=== PATIENT | female | born 1955 | race Caucasian/White ===

== ENCOUNTER → 2019-03-19 | Outpatient (CLI) | payer MEDICARE, OTHER ==
--- NOTE | 2019-04-02 10:22 | MM ---
Reason for exam: screening (asymptomatic). Last mammogram was performed 8 years ago. History: Patient is postmenopausal. Took hormonal contraceptives for 6 months. Physical Findings: A clinical breast exam by your physician is recommended on an annual basis and results should be correlated with mammographic findings. MG 3D Screening Mammo W/Cad Bilateral CC and MLO view(s) were taken. Prior study comparison: March 30, 2011, mammogram, performed at [facility]. December 19, 2007, mammogram, performed at [facility]. The breast tissue is heterogeneously dense. This may lower the sensitivity of mammography. Benign appearing bilateral calcifications. No suspicious abnormality on the left breast. Right uppe router quadrant focal asymmetry at posterior depth. ASSESSMENT: Incomplete: need additional imaging evaluation, BI-RAD 0 RECOMMENDATION: Special view mammogram of the right breast. If lesion persists on supplemental views, image directed ultrasound is recommended. [facility] will attempt to contact patient to return for supplemental views and ultrasound if indicated.
== END | disposition home or self-care (01) ==
LOC: RADMAMWWP 10:14
PROVIDERS: ATTEND Family Medicine
DX: Z12.31 Encounter for screening mammogram for malignant neoplasm of breast (principal)
CPT/HCPCS: 77063; 77067

== ENCOUNTER → 2020-05-19 | Outpatient (CLI) | payer MEDICARE, OTHER ==
--- NOTE | 2020-05-21 11:56 | MM ---
Reason for exam: screening (asymptomatic). Last mammogram was performed 1 year and 1 month ago. History: Patient is postmenopausal. Took hormonal contraceptives for 6 months. Physical Findings: A clinical breast exam by your physician is recommended on an annual basis and results should be correlated with mammographic findings. MG 3D Screening Mammo W/Cad Bilateral CC and MLO view(s) were taken. Prior study comparison: April 12, 2019, right breast MG 3d work up w/cad RT. March 19, 2019, bilateral MG 3d screening mammo w/cad. March 30, 2011, mammogram, performed at [facility]. The breast tissue is extremely dense which could obscure a lesion on mammography. No significant changes when compared with prior studies. ASSESSMENT: Benign, BI-RAD 2 RECOMMENDATION: Routine screening mammogram of both breasts in 1 year.
== END ==
LOC: RADMAMWWP 12:33
PROVIDERS: ATTEND Family Medicine
DX: Z12.31 Encounter for screening mammogram for malignant neoplasm of breast (principal); Z78.0 Asymptomatic menopausal state
CPT/HCPCS: 77063; 77067

== ENCOUNTER → 2021-06-09 | Outpatient (CLI) | payer MEDICARE, OTHER ==
--- NOTE | 2021-06-11 11:02 | MM ---
Reason for exam: screening (asymptomatic). Last mammogram was performed 1 year and 1 month ago. History: Patient is postmenopausal. Took hormonal contraceptives for 6 months. Physical Findings: A clinical breast exam by your physician is recommended on an annual basis and results should be correlated with mammographic findings. MG 3D Screening Mammo W/Cad Bilateral CC and MLO view(s) were taken. Prior study comparison: May 19, 2020, bilateral MG 3d screening mammo w/cad. April 12, 2019, right breast MG 3d work up w/cad RT. The breast tissue is heterogeneously dense. This may lower the sensitivity of mammography. No significant changes when compared with prior studies. ASSESSMENT: Benign, BI-RAD 2 RECOMMENDATION: Routine screening mammogram of both breasts in 1 year.
== END | disposition home or self-care (01) ==
LOC: RADMAMWWP 14:14
PROVIDERS: ATTEND Family Medicine
DX: Z12.31 Encounter for screening mammogram for malignant neoplasm of breast (principal); Z13.820 Encounter for screening for osteoporosis
CPT/HCPCS: 77063; 77067

== ENCOUNTER → 2021-08-10 | Outpatient (CLI) | payer MEDICARE, OTHER ==
--- NOTE | 2021-08-10 19:29 | BD ---
EXAMINATION TYPE: Axial Bone Density DATE OF EXAM: 08/10/2021 COMPARISON: NONE CLINICAL HISTORY: 65 years year old Female. ICD-10 CODE: Z78.0 ASYMPTOMATIC MENOPAUSAL STATE Height: 64 Weight: 129 FRAX RISK QUESTIONS: Alcohol (3 or more units per day): NO Family History (Parent hip fracture): YES Glucocorticoids (More than 3mos): NO History of Fracture in Adulthood: NO Secondary Osteoporosis: 1. Type 1 Diabetes: NO 2. Hyperthyroidism: NO 3. Menopause before 45: NO 4. Malnutrition: NO 5. Chronic liver disease: NO Rheumatoid Arthritis: NO Current Tobacco Use: NO RISK FACTORS HISTORY OF: Hip Fracture (Right/Left): NO Spine Fracture: NO History of Wrist Fracture: NO Surgery to Spine/Hip(right/left)/Wrist (right/left): NO Family History of Osteoporosis: YES MOTHER AND MATERNAL GRANDMOTHER Active: YES Diet low in dairy products/other sources of calcium: NO Postmenopausal woman: YES Take estrogen and/or progesterone medications: NO Lost more than 2 inches in height since high school: NO Frequent falls: NO Poor Health: NO Hyperparathyroidism: NO Adrenal Insufficiency: NO MEDICATIONS: Prednisone or other steroids: NO Thyroid Medications: SYNTHROID How Long: PAST YEAR Osteoporosis Medications: NO Additional Medications: VIT D, Additional History: EXAM MEASUREMENTS: Bone mineral densitometry was performed using the [employer] System. Bone mineral density as measured about the Lumbar spine is: ----- L1-L4(G/cm2): 1.160 T Score Values are as follows: ----- L1: -1.1 ----- L2: -0.4 ----- L3: -0.2 ----- L4: 0.5 ----- L1-L4: -0.2 BASELINE STUDY Bone mineral density about the R hip (g/cm2): 0.780 Bone mineral density about the L hip (g/cm2): 0.815 T Score values are as follows: -----R Neck: -1.9 -----L Neck: -1.6 -----R Total: -1.0 -----L Total: -0.5 BASELINE STUDY FRAX%s: The graph provided illustrates a 17.1% chance for a major osteoporotic fx and a 2.5% chance f or the hips probability for fx in 10 years time. IMPRESSION: Osteopenia (T Score between -2.5 and -1). There is slightly increased risk of fracture and the patient may be considered for treatment. Re-Screen 2-5 years. NOTE: T-SCORE=SD OF THE YOUNG ADULT MEAN.
== END | disposition home or self-care (01) ==
LOC: RADBDWWP 09:52
PROVIDERS: ATTEND Family Medicine
DX: Z13.820 Encounter for screening for osteoporosis (principal); Z78.0 Asymptomatic menopausal state
CPT/HCPCS: 77080

== ENCOUNTER → 2021-11-07 | Outpatient (CLI) | payer MEDICARE, OTHER ==
[2021-11-07 11:58] LABS: Basophils # (A) 0.02 X 10*3/uL (0.00-0.10); Basophils % (A) 0.3 %; Eosinophils # (A) 0.16 X 10*3/uL (0.04-0.35); Eosinophils % (A) 2.7 %; HCT 38.7 % (37.2-46.3); HGB 12.9 g/dL (12.0-15.0); Immature Grans, Automated 0.2 %; Lymphocytes # (A) 2.24 X 10*3/uL (0.90-5.00); Lymphocytes % (A) 37.8 %; MCH 29.9 pg (27.0-32.0); MCHC 33.3 g/dL (32.0-37.0); MCV 89.8 fL (80.0-97.0); Mean Platelet Volume 13.3 fL (9.5-12.2); Monocytes % (A) 6.8 %; NRBC Per 100 WBC 0 /100 WBCS (0.0-0.0); Neutrophils # (A) 3.09 X 10*3/uL (1.80-7.70); Neutrophils % (A) 52.2 %; Platelet Count 164 X 10*3/uL (140-440); RBC 4.31 X 10*6/uL (4.10-5.20); WBC 5.92 X 10*3/uL (4.50-10.00)
[2021-11-07 12:11] LABS: % Iron Saturation 25.21 (12.00-45.00); ALT 23 U/L (8-44); AST 24 U/L (13-35); African American GFR (CKD) 91.6 (60.0-200.0); Albumin 4.5 g/dL (3.8-4.9); Albumin/Globulin Ratio 1.96 (1.60-3.17); Alkaline Phosphatase 82 U/L (41-126); BUN/Creat Ratio 22.65 Ratio (12.00-20.00); Blood Urea Nitrogen 17.6 mg/dL (9.0-27.0); Calcium 9.3 mg/dL (8.7-10.3); Carbon Dioxide 27.4 mmol/L (20.0-27.5); Chloride 104 mmol/L (96-109); Chol/HDL Ratio 2.81 Ratio; Globulin 2.3 g/dL (1.6-3.3); Glucose 93 mg/dL (70-110); Iron 71 ug/dL (50-170); LDL Cholesterol,Calculated 94.4 mg/dL (0.0-131.0); Potassium 3.8 mmol/L (3.5-5.5); Sodium 142 mmol/L (135-145); Total Iron Binding Capacity 283 ug/dL (228-460); Total Protein 6.7 g/dL (6.2-8.2); VLDL Calculation 14.46 mg/dL (5.00-40.00)
== END | disposition home or self-care (01) ==
LOC: LABWHC1 08:32
PROVIDERS: ATTEND Family Medicine
DX: Z13.220 Encounter for screening for lipoid disorders (principal); Z13.1 Encounter for screening for diabetes mellitus; E03.9 Hypothyroidism, unspecified; R53.83 Other fatigue
CPT/HCPCS: 36415; 80053; 80061; 82306; 82607; 82728; 82746; 83036; 83540; 83550; 84439; 84443; 84481; 85025

== ENCOUNTER → 2023-01-20 | Outpatient (CLI) | payer MEDICARE, OTHER ==
--- NOTE | 2023-01-20 14:16 | US ---
EXAMINATION TYPE: US thyroid st tissue head/neck DATE OF EXAM: 01/20/2023 COMPARISON: NONE CLINICAL INDICATION: Female, 67 years old with history of E04.1 NONTOXIC SINGLE THYROID NODULE; GLAND SIZE: Right Lobe: 4.7 x 1.5 x 2.0 cm Overall Parenchyma: homogenous Left Lobe: 4.4 x 1.3 x 1.4 cm Overall Parenchyma: homogenous Isthmus Thickness: 0.27 cm NODULES RIGHT: # of nodules measured on right: 1 - largest listed below, multiple subcentimeter nodules see n 1. 1.3 X 1.1 x 1.1 cm, mid mid, solid or almost completely solid, isoechoic nodule, which is circul ar, with lobulated or irregular margins, with echogenic foci. TR 4 Prior size: at [facility], unavailable for comparison LEFT: # of nodules measured on left: 1 1. 1.2 X 0.8 x 1.0 cm, lower mid, mixed cystic and solid, hypoechoic nodule, which is wider than ta ll, with lobulated or irregular margins, with echogenic foci. Prior size: ISTHMUS: # of nodules measured in the isthmus: 0 subcentimeter cystic area noted Bilateral neck scanned, no evidence of lymphadenopathy. IMPRESSION: 1. Moderately suspicious nodule right thyroid lobe. Short-term follow-up 1 year is recommended. 2017 ACR TI-RADS LEVEL: TR-RADS 4 - Moderately Suspicious: Follow if > 1 cm, FNA if > 1.5 cm *Highest TI-RADS level nodule reported
== END | disposition home or self-care (01) ==
LOC: RADUSWWP 13:26
PROVIDERS: ATTEND Otolaryngology
DX: E04.1 Nontoxic single thyroid nodule (principal)
CPT/HCPCS: 76536

== ENCOUNTER → 2023-05-23 | Outpatient (CLI) | payer MEDICARE, OTHER ==
--- NOTE | 2023-05-24 10:02 | MM ---
Reason for Exam: Screening (asymptomatic). Last mammogram was performed 1 year(s) and 11 month(s) ago. Patient History: Menarche at age 11. First Full-Term at age 27. Postmenopausal. Hormonal Contraceptives for 6 months. Risk Values: Agnes 5 year model risk: 1.9%. NCI Lifetime model risk: 5.9%. Prior Study Comparison: 04/12/2019 Right Diagnostic Mammogram, [facility]. 05/19/2020 Bilateral Screening Mammogram, [facility]. 06/09/2021 Bilateral Screening Mammogram, [facility]. Tissue Density: The breasts are heterogeneously dense, which may obscure small masses. Findings: Analyzed By CAD. There is no suspicious group of microcalcifications or new suspicious mass in either breast. On benign-appearing calcifications. There is a 4 mm nodule circumscribed margins in the upper margin of the right breast. Overall Assessment: Incomplete: need additional imaging evaluation, BI-RAD 0 Management: Diagnostic Mammogram of the right breast. . Patient should continue monthly self-breast exams. A clinical breast exam by your physician is recommended on an annual basis. This exam should not preclude additional follow-up of suspicious palpable abnormalities. Note on Agnes scores and lifetime risk: 1. A Agnes score greater than 3% is considered moderate risk. If this is the case, consider specialist referral to assess eligibility for a risk reducing agent. 2. If overall lifetime risk for the development of breast cancer is 20% or higher, the patient may qualify for future screening with alternating mammogram and breast MRI. Electronically signed and approved by: Darío Delatorre M.D. Radiologis
== END | disposition home or self-care (01) ==
LOC: RADMAMWWP 13:06
PROVIDERS: ATTEND Family Medicine
DX: Z12.31 Encounter for screening mammogram for malignant neoplasm of breast (principal); Z78.0 Asymptomatic menopausal state
CPT/HCPCS: 77063; 77067

== ENCOUNTER → 2023-05-25 | Outpatient (CLI) | payer MEDICARE, OTHER ==
--- NOTE | 2023-05-26 09:30 | USB ---
Reason for Exam: Additional evaluation requested from abnormal screening. Patient History: Menarche at age 11. First Full-Term at age 27. Postmenopausal. Hormonal Contraceptives for 6 months. Risk Values: Agnes 5 year model risk: 1.9%. NCI Lifetime model risk: 5.9%. Technique: Method: Targeted. Prior Study Comparison: 05/19/2020 Bilateral Screening Mammogram, [facility]. 06/09/2021 Bilateral Screening Mammogram, [facility]. 05/23/2023 Bilateral MG 3D screening mammo w/cad, [facility]. Findings: The upper outer quadrant of the right breast, the axilla of the right breast and the retroareolar of the right breast were scanned. Technique utilized:US breast workup limited RT Image; Ultrasound imaging of: All 4 quadrants, the retroareolar region and axilla. There is a 4 mm lesion at 9:00 8 cm from the nipple is too small to characterize. May represent complex cyst given posterior acoustic enhancement. Overall Assessment: Probably benign, BI-RAD 3 Management: Diagnostic Breast Ultrasound of the right breast in 6 months. A clinical breast exam by your physician is recommended on an annual basis and results should be correlated with mammographic findings. This exam should not preclude additional follow-up of suspicious palpable abnormalities. Results were given to the patient verbally at the time of exam. Electronically signed and approved by: Jose Rodgers DO
--- NOTE | 2023-05-26 09:30 | MM ---
Reason for Exam: Additional evaluation requested from abnormal screening. Last screening mammogram was performed less than 1 month ago. Patient History: Menarche at age 11. First Full-Term at age 27. Postmenopausal. Hormonal Contraceptives for 6 months. Risk Values: Agnes 5 year model risk: 1.9%. NCI Lifetime model risk: 5.9%. Prior Study Comparison: 12/19/2007 Screening Mammogram, [facility]. 03/30/2011 Screening Mammogram, [facility]. 03/19/2019 Bilateral Screening Mammogram, [facility]. 04/12/2019 Right Diagnostic Mammogram, [facility]. 04/12/2019 Right Diagnostic Ultrasound, [facility]. 05/19/2020 Bilateral Screening Mammogram, [facility]. 06/09/2021 Bilateral Screening Mammogram, [facility]. 05/23/2023 Bilateral MG 3D screening mammo w/cad, [facility]. Tissue Density: Right: There are scattered areas of fibroglandular density. Findings: Analyzed By CAD. Focal asymmetry persists upper aspect measuring 4 mm 7.7 cm from the nipple. Overall Assessment: Incomplete: need additional imaging evaluation, BI-RAD 0 Management: Diagnostic Breast Ultrasound of the right breast. Results were given to the patient verbally at the time of exam. Patient should continue monthly self-breast exams. A clinical breast exam by your physician is recommended on an annual basis. This exam should not preclude additional follow-up of suspicious palpable abnormalities. Note on Agnes scores and lifetime risk: 1. A Agnes score greater than 3% is considered moderate risk. If this is the case, consider specialist referral to assess eligibility for a risk reducing agent. 2. If overall lifetime risk for the development of breast cancer is 20% or higher, the patient may qualify for future screening with alternating mammogram and breast MRI. Electronically signed and approved by: Jose Rodgers DO
== END | disposition home or self-care (01) ==
LOC: RADMAMWWP 14:04
PROVIDERS: ATTEND Family Medicine
DX: R92.321 Mammographic fibroglandular density, right breast (principal); Z78.0 Asymptomatic menopausal state
CPT/HCPCS: 77065; 76642; G0279; 77061

== ENCOUNTER → 2023-09-02 | Outpatient (CLI) | payer MEDICARE, OTHER ==
[2023-09-02 17:27] LABS: Basophils # (A) 0.03 X 10*3/uL (0.00-0.10); Basophils % (A) 0.3 %; Eosinophils # (A) 0.23 X 10*3/uL (0.04-0.35); Eosinophils % (A) 2.6 %; HCT 42.4 % (37.2-46.3); HGB 13.4 g/dL (12.0-15.0); Lymphocytes # (A) 3.13 X 10*3/uL (0.90-5.00); Lymphocytes % (A) 35.2 %; MCH 28.6 pg (27.0-32.0); MCHC 31.6 g/dL (32.0-37.0); MCV 90.6 FL (80.0-97.0); Mean Platelet Volume 14.9 FL (9.5-12.2); Monocytes # (A) 0.68 X 10*3/uL (0.20-1.00); Monocytes % (A) 7.6 %; NRBC Per 100 WBC 0 X 10*3/uL (0.00-0.01); Neutrophils # (A) 4.82 X 10*3/uL (1.80-7.70); Neutrophils % (A) 54.2 %; Platelet Count 166 X 10*3/uL (140-440); RBC 4.68 X 10*6/uL (4.10-5.20); RDW 13.8 % (11.5-14.5)
[2023-09-02 18:30] LABS: Erythrocyte Sedimentation Rate 12 mm/Hr (0-30)
[2023-09-02 21:22] LABS: ALT 33 U/L (8-44); AST 27 U/L (13-35); Albumin 4.5 g/dL (3.8-4.9); Albumin/Globulin Ratio 1.73 Ratio (1.60-3.17); Alkaline Phosphatase 89 U/L (41-126); BUN/Creat Ratio 26.25 Ratio (12.00-20.00); C Reactive Protein <0.30 mg/dL (0.00-0.80); Calcium 9.8 mg/dL (8.7-10.3); Chloride 104 mmol/L (96-109); Chol/HDL Ratio 2.82 Ratio; Creatine Kinase 38 U/L (26-186); Globulin 2.6 g/dL (1.6-3.3); Glucose 91 mg/dL (70-110); LDL Cholesterol,Calculated 104.2 mg/dL (0.0-131.0); Sodium 143 mmol/L (135-145); T4, Free (Free Thyroxine) 1.41 ng/dL (0.80-1.80); Total Bilirubin <0.2 mg/dL (0.3-1.2); Total Protein 7.1 g/dL (6.2-8.2); VLDL Calculation 15.32 mg/dL (5.00-40.00)
== END | disposition home or self-care (01) ==
LOC: LABWHC1 07:53
PROVIDERS: ATTEND Family Medicine
DX: Z00.01 Encounter for general adult medical examination with abnormal findings (principal); M25.50 Pain in unspecified joint
CPT/HCPCS: 36415; 80053; 80061; 82550; 83036; 84439; 84443; 85025; 85652; 86140

== ENCOUNTER 2024-03-29 08:30 | Day surgery (SDC) | payer MEDICARE, OTHER ==
[~2024-03-29 08:30] MED LIST: LIDOCAINE 1% (10MG/ML) FOR IV START INTRADERMA PRN
[2024-03-29] MEDS: IV FLUID CONTINUATION 1,000 ML IV ONE (09:30)
[2024-03-29 09:32] VITALS: TEMP 98.3
[2024-03-29] MEDS: LACTATED RINGERS 1,000 ML IV SCH (09:33)
[2024-03-29] MEDS ORDERED: PROPOFOL 10 MG/ML 20 ML VIAL IV ONE (10:25)
--- NOTE | 2024-03-29 10:49 | P.PCN ---
Date of Procedure: 03/29/24 Procedure(s) Performed: BRIEF HISTORY: Patient is a 68-year-old pleasant white female scheduled for an elective colonoscopy as a part of screening for colon cancer /positive Cologuard. PROCEDURE PERFORMED: Colonoscopy. PREOPERATIVE DIAGNOSIS: Screening for colon cancer/positive Cologuard. IV sedation per Anesthesia. PROCEDURE: After informed consent was obtained, the patient, was brought into the endoscopy unit. IV sedation was administered by Anesthesia under continuous monitoring. Digital rectal examination was normal. Initially the Olympus CF-160 flexible video colonoscope was then inserted in the rectum, gradually advanced into the cecum without any difficulty. Careful examination was performed as the scope was gradually being withdrawn. Ileocecal valve and the appendiceal orifice were visualized and appeared normal. Prep was excellent. Mucosa of the cecum, ascending colon, transverse colon, descending colon, sigmoid colon, and rectum appeared normal. Scattered sigmoid diverticulosis retroflexion was performed in the rectum and small internal hemorrhoids s were seen. The patient tolerated the procedure well. IMPRESSION: Normal-appearing colon from rectum to cecum with no evidence of colorectal neoplasia Scattered sigmoid diverticulosis Small internal hemorrhoids. RECOMMENDATIONS: Findings of this examination were discussed with the patient as well as her family. She was advised to have repeat screening colonoscopy in 10 years..
[2024-03-29 11:11] VITALS: BP 170/77; PULSE 83; RESP 17
== END 2024-03-29 11:40 | disposition home or self-care (01) ==
LOC: ORWHC2ENDO 08:30
PROVIDERS: ATTEND Internal Medicine Gastroenterology
DX: Z12.11 Encounter for screening for malignant neoplasm of colon (principal); K57.30 Diverticulosis of large intestine without perforation or abscess without bleeding; K64.8 Other hemorrhoids; I10 Essential (primary) hypertension; K21.9 Gastro-esophageal reflux disease without esophagitis; Z88.1 Allergy status to other antibiotic agents
CPT/HCPCS: J2704; G0121; 45378